=== PATIENT | female | born 1990 | race African-American/Black ===

== ENCOUNTER 2017-12-30 17:48 | Emergency (ER) | payer OTHER ==
[2017-12-30 18:31] LABS: Urine Appearance Cloudy; Urine Blood 2+ (Negative); Urine Color Yellow; Urine Ketones Trace (Negative); Urine Protein 1+(30 mg/dL) (Negative); Urine Red Blood Cell 1+(3-5/hpf) (Absent); Urine Specific Gravity 1.021 (1.010-1.030); Urine Urobilinogen Negative (Negative); Urine White Blood Cell Trace(0-5/hpf) (Absent)
--- NOTE | 2017-12-30 18:43 | ED ---
Abdominal Pain/Female - HPI Summary HPI Summary: Patient complains of mid lower abdominal pain 2 days. Pain described as sharp , intermittent, rated up to 9/10, lasting 10-15 seconds at a time, occurring 3- 4 times an hour. Denies prior history of same. Patient states she has current UTI and is on antibiotics for same. History of recurrent UTI, but denies ever having had the symptoms with prior UTI. Also states first IUD placed 12/07/17 at [facility]. History of prior ovarian cyst rupture. Denies fever, N/V/D , vaginal symptoms, change in BM. LMP November 23. Medical history is ADHD. Abdominal/pelvic surgical history is none. - History of Current Complaint Chief Complaint: EDAbdPain Stated Complaint: SEVERE CRAMPING Time Seen by Provider: 12/30/17 18:08 Hx Obtained From: Patient Onset/Duration: Sudden Onset, Lasting Days Timing: Seconds Severity Initially: Moderate Severity Currently: Severe Pain Intensity: 9 Pain Scale Used: 0-10 Numeric Location: Suprapubic Radiates: No Character: Sharp Aggravating Factor(s): Nothing Alleviating Factor(s): Nothing Associated Signs and Symptoms: Positive: Urinary Symptoms Allergies/Adverse Reactions: Allergies Allergy/AdvReac Type Severity Reaction Status Date / Time No Known Allergies Allergy Verified 12/30/17 18:30 PMH/Surg Hx/FS Hx/Imm Hx Endocrine/Hematology History: Denies: Hx Anticoagulant Therapy Cardiovascular History: Denies: Hx Cardiac Arrest History: Denies: Hx Dialysis Neurological History: Denies: Hx CVA Infectious Disease History: No Infectious Disease History: Denies: Traveled Outside the [place] in Last 30 Days - Social History Alcohol Use: Weekly Substance Use Type: Reports: None Smoking Status (MU): Never Smoked Tobacco Review of Systems Constitutional: Negative Eyes: Negative ENT: Negative Cardiovascular: Negative Respiratory: Negative Positive: Abdominal Pain Genitourinary: Negative Musculoskeletal: Negative Skin: Negative Neurological: Negative Psychological: Normal All Other Systems Reviewed And Are Negative: Yes Physical Exam - Summary Physical Exam Summary: Abdomen nontender to palpation in any quadrant. Triage Information Reviewed: Yes Vital Signs On Initial Exam: Initial Vitals Temp Pulse Resp BP Pulse Ox 98.2 F 88 14 120/86 99 12/30/17 17:51 12/30/17 17:51 12/30/17 17:51 12/30/17 17:51 12/30/17 17:51 Vital Signs Reviewed: Yes Appearance: Positive: Well-Appearing Skin: Positive: Warm Head/Face: Positive: Normal Head/Face Inspection Eyes: Positive: Normal Neck: Positive: Supple Respiratory/Lung Sounds: Positive: Clear to Auscultation Cardiovascular: Positive: Normal Abdomen Description: Positive: Nontender Musculoskeletal: Positive: Normal Neurological: Positive: Normal Psychiatric: Positive: Normal AVPU Assessment: Alert - Haile Coma Scale Best Eye Response: 4 - Spontaneous Best Motor Response: 6 - Obeys Commands Best Verbal Response: 5 - Oriented Coma Scale Total: 15 Diagnostics - Vital Signs Vital Signs Temp Pulse Resp BP Pulse Ox 12/30/17 17:51 98.2 F 88 14 120/86 99 - Laboratory Lab Results: Lab Results 12/30/17 Range/Units 18:17 Urine Color Yellow Urine Appearance Cloudy Urine pH 5.0 (5-9) Ur Specific [place] 1.021 (1.010-1.030) Urine Protein 1+(30 mg/dl) A (Negative) Urine Ketones Trace A (Negative) Urine Blood 2+ A (Negative) Urine Nitrate Negative (Negative) Urine Bilirubin Negative (Negative) Urine Urobilinogen Negative (Negative) Ur Leukocyte Esterase Negative (Negative) Urine WBC (Auto) Trace(0-5/hpf) (Absent) Urine RBC (Auto) 1+(3-5/hpf) A (Absent) Ur Squamous Epith Cells Present A (Absent) Urine Bacteria Absent (Absent) Hyaline Casts Present A (Absent) Urine Glucose Negative (Negative) Urine Ascorbic Acid * A (Negative) Result Diagrams: 12/30/17 19:02 12/30/17 19:02 Lab Statement: Any lab studies that have been ordered have been reviewed, and results considered in the medical decision making process. - Ultrasound No standard instances Ultrasound Interpretation: Positive (See Comments) - Left hemorrhagic ovarian cyst Ultrasound Interpretation Completed By: Radiologist Abdominal Pain Fem Course/Dx - Course Course Of Treatment: Patient complains of mid lower abdominal pain 2 days. Pain described as sharp, intermittent, rated up to 9/10, lasting 10-15 seconds at a time, occurring 3-4 times an hour. Denies prior history of same. Patient states she has current UTI and is on antibiotics for same. History of recurrent UTI, but denies ever having had the symptoms with prior UTI. Also states first IUD placed 12/07/17 at [facility]. History of prior ovarian cyst rupture. Denies fever, N/V/D, vaginal symptoms, change in BM. LMP November 23. Medical history is ADHD. Abdominal/pelvic surgical history is none. Physical exam: Abdomen nontender to palpation in any quadrant. Vital signs within normal limits. Labs unremarkable. Ultrasound transvaginal positive for left hemorrhagic cyst. No free fluid. Patient given Toradol 10 mg by mouth. OTC ibuprofen. - Diagnoses Provider Diagnoses: Hemorrhagic cyst of left ovary Discharge - Sign-Out/Discharge Documenting (check all that apply): Patient Departure - Discharge Plan Condition: Stable Disposition: HOME Prescriptions: HYDROcodone/ACETAMIN 5-325 MG* [[place] 5-325 TAB*] 1 tab PO Q6H PRN 2 Days #4 tab MDD 4 tabs PRN Reason: Pain Patient Education Materials: Ovarian Cyst (ED) Referrals: No Primary Care Phys,NOPCP [Primary Care Provider] - Additional Instructions: Follow-up in 1 month to make sure cyst has resolved. Take ibuprofen 600 mg 3 times a day for pain. Return to the ED for any new or worsening symptoms - Billing Disposition and Condition Condition: STABLE Disposition: Home
[2017-12-30 19:17] LABS: ABS Basophils 0 10^3/ul (0-0.2); ABS Eosinophils 0 10^3/ul (0-0.6); ABS Lymphocytes 1.7 10^3/ul (1.0-4.8); ABS Monocytes 0.7 10^3/ul (0-0.8); ABS Nucleated RBC 0 10^3/ul; Eosinophil % 0.1 % (0-6); Hematocrit 37 % (35-47); Hemoglobin 12.4 g/dl (12.0-16.0); Lymphocyte % 20.6 % (25-47); Mean Corpuscular HGB Conc 34 g/dl (31-36); Mean Corpuscular Hemoglobin 26 pg (27-31); Mean Corpuscular Volume 78 fL (80-97); Mean Platelet Volume 9.1 um3 (7.4-10.4); Nucleated Red Blood Cells % 0.4; Platelet Count 142 10^3/ul (150-450); Red Blood Count 4.74 10^6/ul (4.00-5.40); Red Cell Distribution Width 15 % (10.5-15); White Blood Count 8.5 10^3/ul (3.5-10.8)
--- NOTE | 2017-12-30 20:45 | RAD ---
EXAM: US Pelvis, Transvaginal CLINICAL HISTORY: 27 years old, female; Pain; Pelvic pain; Patient HX: Iud placed 3 wks ago; Additional info: Check iud placement TECHNIQUE: Real-time transvaginal pelvic ultrasound (complete) with image documentation. Transvaginal imaging was used for better evaluation of the endometrium and adnexa. COMPARISON: No relevant prior studies available. FINDINGS: Uterus/cervix: Uterus measures 6.7 x 3.9 x 3.8 cm. Intrauterine device present in the expected location. Endometrial stripe thickness measured because the IUD. No myometrial mass. Right ovary: Right ovary measures 3.2 x 1.8 x 2.6 cm. Normal blood flow. Left ovary: Left ovary measures 3.6 x 2.3 x 3.4 cm. Probable small hemorrhagic cyst measuring 1.5 x 1.2 x 0.9 cm. Normal blood flow. Free fluid: No free fluid. Bladder: Empty bladder which cannot be evaluated with this probe. IMPRESSION: 1. Left ovarian hemorrhagic cyst. Consider followup examination in 4-6 weeks to document resolution. 2. IUD present.
[2017-12-30] MEDS ORDERED: Ketorolac TAB * 10 MG TAB PO PRN (20:56)
[2017-12-30 21:18] VITALS: BP 118/71
== END 2017-12-30 21:15 | disposition home or self-care (01) ==
LOC: ED 17:48
CPT/HCPCS: 36415; 76830; 80048; 81003; 81015; 84702; 85025; 87086; 87491; 87591